=== PATIENT | male | born 1950 | race African-American/Black ===

== ENCOUNTER 2016-07-28 17:09 | Inpatient (IN) | payer OTHER ==
[~2016-07-28] VITALS: Ht 182.9 cm; Wt 143.3 kg
[~2016-07-28 17:09] MED LIST: ATOR40TA70 PO; CARV6.2548 PO; DOCU-150 PO; FURO40TA5 PO; GABA-529 PO; LEVO100T9 PO; OMEP20CA10 PO; POLY17PO3 PO; SIMETHICONE PO; TAMS0.4C31 PO; TRAM50TA3 PO
[2016-07-28 21:02] LABS: BASOPHILS % 0.8 % (0.0-2.0); EOSINOPHILS % 2.9 % (0.0-5.0); HEMATOCRIT. 38.9 % (42.0-52.0); HEMOGLOBIN. 12.9 g/dL (14.0-18.0); LYMPHOCYTES % 24.8 % (20.0-50.0); MEAN CORPUSCULAR HEMOGLOBIN 29.2 pg (28.0-32.0); MEAN CORPUSCULAR HGB CONC 33.1 g/dL (31.0-37.0); MEAN CORPUSCULAR VOLUME 88.3 fL (80.0-94.0); MEAN PLATELET VOLUME 8.4 fl (7.4-10.4); NEUTROPHILS % 65.5 % (40.0-76.0); PLATELET 241 x1000/uL (130-400); RED BLOOD CELL COUNT 4.41 mill/uL (4.7-6.1); RED CELL DISTRIBUTION WIDTH 18.1 % (11.6-14.6)
[2016-07-28 21:09] LABS: PROTHROMBIN TIME 10.3 sec
[2016-07-28 21:17] LABS: ALANINE AMINOTRANSFERASE 22 IU/L (13-61); ALBUMIN 3.2 g/dL (3.4-5.0); ANION GAP 10; CALCIUM 8.4 mg/dL (8.5-10.1); CARBON DIOXIDE 28 mEq/L (21-32); CHLORIDE 106 mEq/L (98-107); INDEX HEMOLYSI 1 (1-3); INDEX ICTERIC 1 (1-4); INDEX LIPEMIC 1 (1-3); NT PRO B-TYPE NATRIURETIC PEP 48 pg/mL (5-125); TROPONIN I < 0.02 ng/mL (0.00-0.04); UREA NITROGEN BLOOD 15 mg/dL (7-21); eGFR > 60 mL/min (>60)
[2016-07-28] MEDS ORDERED: MORPHINE SULFATE 4 MG/ML CPJ (NOT FOR IM USE) IV ONE (22:00)
[2016-07-28] MEDS ORDERED: ONDANSETRON HCL 4MG/2ML VIAL IV ONE (22:00)
[2016-07-29] MEDS ORDERED: FUROSEMIDE 40MG/4ML VIAL IVP ONE
[2016-07-29] MEDS ORDERED: MAGNESIUM/ALUMINUM HYDROXIDE/SIMETHICONE 30ML UDC PO PRN (01:15)
[2016-07-29] MEDS ORDERED: CLONIDINE 0.1MG TABLET PO PRN (01:15)
[2016-07-29] MEDS ORDERED: DIPHENHYDRAMINE 50MG/ML VIAL IV PRN (01:15)
[2016-07-29] MEDS ORDERED: NA PHOS,M-B/NA PHOS,DI-BA ENEMA 118ML PR PRN (01:15)
[2016-07-29] MEDS ORDERED: ONDANSETRON HCL 4MG/2ML VIAL IV PRN (01:15)
[2016-07-29] MEDS ORDERED: ACETAMINOPHEN 650MG SUPP PR PRN (01:15)
[2016-07-29] MEDS ORDERED: GUAIFENESIN 200MG/10ML SUGAR FREE UDC PO PRN (01:15)
[2016-07-29] MEDS ORDERED: ACETAMINOPHEN 650MG/20.3ML UDC GT PRN (01:15)
[2016-07-29] MEDS ORDERED: ACETAMINOPHEN 325MG TABLET PO PRN (01:15)
[2016-07-29] MEDS ORDERED: IPRATROPIUM/ALBUTEROL 0.5-3(2.5)MG/3ML NEB INH PRN (01:15)
[2016-07-29] MEDS ORDERED: ENOXAPARIN 120MG/0.8ML SYR SUBCUT STA (02:32)
[2016-07-29] MEDS: HYDROCODONE/ACETAMINOPHEN 5/325MG TABLET PO PRN ×2 (03:57→16:41)
[2016-07-29] MEDS ORDERED: FUROSEMIDE 40MG/4ML VIAL ONE (06:29)
[2016-07-29 08:00] VITALS: BP 132/78
[2016-07-29] MEDS ORDERED: SODIUM CHLORIDE 0.9% 10ML VIAL ONE (10:48)
[2016-07-29] MEDS ORDERED: IOHEXOL-350 100 ML BOTTLE ONE (10:48)
[2016-07-29 15:56] LABS: CLARITY URINE CLEAR (CLEAR); COLOR URINE YELLOW (YELLOW); GLUCOSE URINE NEGATIVE (NEGATIVE); KETONES URINE NEGATIVE (NEGATIVE); LEUKOCYTE ESTERASE URINE NEGATIVE (NEGATIVE); NITRITE URINE NEGATIVE (NEGATIVE); OCCULT BLOOD URINE NEGATIVE (NEGATIVE); PH URINE 5.5 (4.5-8.0); PROTEIN URINE NEGATIVE (NEGATIVE); UROBILINOGEN URINE 0.2 E.U./dL (0.2-1.0)
[2016-07-29 16:00] VITALS: BP 144/102
[2016-07-29 16:24] LABS: *AMPHETAMINES SCREEN URINE NEGATIVE (NEGATIVE); *BARBITURATES SCREEN URINE NEGATIVE (NEGATIVE); *BENZODIAZEPINES SCREEN URINE NEGATIVE (NEGATIVE); *COCAINE SCREEN URINE PRESUMTIVE POSITIVE (NEGATIVE); CANNABINOID URINE SCREEN NEGATIVE (NEGATIVE); ECSTASY MDMA SCREEN URINE NEGATIVE (NEGATIVE); METHADONE URINE SCREEN NEGATIVE (NEGATIVE); OPIATES URINE SCREEN PRESUMTIVE POSITIVE (NEGATIVE); PHENCYCLIDINE URINE SCREEN NEGATIVE (NEGATIVE)
[2016-07-29] MEDS: ENOXAPARIN 150MG/ML SYR SUBCUT SCH (16:36)
[2016-07-29 16:47] VITALS: BP 134/78
[2016-07-29] MEDS ORDERED: WARFARIN SODIUM 10MG TABLET PO SCH (18:00)
[2016-07-29] MEDS: FUROSEMIDE 40MG/4ML VIAL IVP SCH (18:17)
[2016-07-29 20:00] VITALS: BP 114/76
[2016-07-29] MEDS: SODIUM CHLORIDE 0.9% INJ 3ML FLUSH IVF SCH (21:12)
[2016-07-29] MEDS ORDERED: coumadin PO (21:23)
[2016-07-30] VITALS: BP 116/76
[2016-07-30] MEDS: HYDROCODONE/ACETAMINOPHEN 5/325MG TABLET PO PRN ×3 (01:10→17:28)
[2016-07-30] MEDS: DOCUSATE SODIUM 100MG CAPSULE PO PRN ×2 (01:16→17:28)
[2016-07-30] MEDS: ENOXAPARIN 150MG/ML SYR SUBCUT SCH (02:18)
[2016-07-30 04:00] VITALS: BP 121/81
[2016-07-30] MEDS: SODIUM CHLORIDE 0.9% INJ 3ML FLUSH IVF SCH ×3 (05:31→21:07)
[2016-07-30 06:24] LABS: PROTHROMBIN TIME 10.8 sec
[2016-07-30 07:01] LABS: BASOPHILS % 1.2 % (0.0-2.0); HEMATOCRIT. 35.3 % (42.0-52.0); HEMOGLOBIN. 11.8 g/dL (14.0-18.0); LYMPHOCYTES % 39.7 % (20.0-50.0); MEAN CORPUSCULAR HGB CONC 33.4 g/dL (31.0-37.0); MEAN CORPUSCULAR VOLUME 86.8 fL (80.0-94.0); MEAN PLATELET VOLUME 8.9 fl (7.4-10.4); MONOCYTES % 8.1 % (2.0-8.0); PLATELET 234 x1000/uL (130-400); RED BLOOD CELL COUNT 4.07 mill/uL (4.7-6.1); RED CELL DISTRIBUTION WIDTH 17.8 % (11.6-14.6); WHITE BLOOD COUNT 5.1 x1000/uL (4.5-11.0)
[2016-07-30 07:38] LABS: ALBUMIN 2.6 g/dL (3.4-5.0); ANION GAP 8; CALCIUM 8.1 mg/dL (8.5-10.1); CARBON DIOXIDE 31 mEq/L (21-32); CHLORIDE 105 mEq/L (98-107); INDEX HEMOLYSI 1 (1-3); INDEX ICTERIC 1 (1-4); INDEX LIPEMIC 1 (1-3); UREA NITROGEN BLOOD 12 mg/dL (7-21)
[2016-07-30 07:42] LABS: ALANINE AMINOTRANSFERASE 18 IU/L (13-61); eGFR > 60 mL/min (>60)
[2016-07-30 08:00] VITALS: BP 115/72
[2016-07-30] MEDS: FUROSEMIDE 40MG/4ML VIAL IVP SCH (09:25)
[2016-07-30 12:00] VITALS: BP 121/71
[2016-07-30 16:00] VITALS: BP 120/69
[2016-07-30] MEDS: RIVAROXABAN 20 MG TABLET PO SCH (17:25)
[2016-07-30 20:00] VITALS: BP 128/70
[2016-07-31] VITALS: BP 121/82
[2016-07-31 04:00] VITALS: BP 114/74
[2016-07-31] MEDS: SODIUM CHLORIDE 0.9% INJ 3ML FLUSH IVF SCH ×3 (06:33→22:00)
[2016-07-31 08:00] VITALS: BP 143/91
[2016-07-31] MEDS: FUROSEMIDE 40MG/4ML VIAL IVP SCH (10:11)
[2016-07-31] MEDS: HYDROCODONE/ACETAMINOPHEN 5/325MG TABLET PO PRN ×3 (10:12→16:39)
[2016-07-31] MEDS: DOCUSATE SODIUM 100MG CAPSULE PO PRN (10:23)
[2016-07-31 12:00] VITALS: BP 139/87
[2016-07-31] MEDS ORDERED: ALPRAZOLAM 0.5 MG TABLET PO PRN (14:00)
[2016-07-31 16:00] VITALS: BP 125/77
[2016-07-31] MEDS: FOLIC ACID 1MG TABLET PO SCH (16:36)
[2016-07-31] MEDS: RIVAROXABAN 20 MG TABLET PO SCH (16:37)
[2016-07-31] MEDS: MULTIVITAMINS,THER W-MINERALS TABLET PO SCH (16:37)
[2016-07-31] MEDS: GABAPENTIN 400MG CAPSULE PO SCH ×2 (16:38→22:00)
[2016-07-31 20:00] VITALS: BP 130/81
[2016-08-01] VITALS: BP 133/78
[2016-08-01 04:00] VITALS: BP 105/64
[2016-08-01] MEDS: GABAPENTIN 400MG CAPSULE PO SCH ×3 (05:22→21:30)
[2016-08-01] MEDS: SODIUM CHLORIDE 0.9% INJ 3ML FLUSH IVF SCH ×3 (05:22→21:31)
[2016-08-01 08:00] VITALS: BP 118/74
[2016-08-01] MEDS: MULTIVITAMINS,THER W-MINERALS TABLET PO SCH (09:49)
[2016-08-01] MEDS: FOLIC ACID 1MG TABLET PO SCH (09:49)
[2016-08-01] MEDS: FUROSEMIDE 40MG/4ML VIAL IVP SCH (09:49)
[2016-08-01 12:00] VITALS: BP 123/90
[2016-08-01 16:00] VITALS: BP 139/89
[2016-08-01] MEDS: RIVAROXABAN 20 MG TABLET PO SCH (17:18)
[2016-08-01 20:00] VITALS: BP 114/69
[2016-08-01 23:16] LABS: CHLORIDE 102 mEq/L (98-107); INDEX HEMOLYSI 1 (1-3); INDEX ICTERIC 1 (1-4); INDEX LIPEMIC 1 (1-3)
[2016-08-01 23:23] LABS: ALANINE AMINOTRANSFERASE 19 IU/L (13-61); ALBUMIN 2.6 g/dL (3.4-5.0); ANION GAP 11; CALCIUM 8.1 mg/dL (8.5-10.1); CARBON DIOXIDE 30 mEq/L (21-32); UREA NITROGEN BLOOD 12 mg/dL (7-21); eGFR > 60 mL/min (>60)
[2016-08-01 23:30] LABS: INR 1.2; PROTHROMBIN TIME 12.5 sec
[2016-08-01 23:53] LABS: BASOPHILS % 1.1 % (0.0-2.0); EOSINOPHILS % 3.2 % (0.0-5.0); HEMATOCRIT. 36.8 % (42.0-52.0); HEMOGLOBIN. 12.3 g/dL (14.0-18.0); LYMPHOCYTES % 33.5 % (20.0-50.0); MEAN CORPUSCULAR HEMOGLOBIN 29.2 pg (28.0-32.0); MEAN CORPUSCULAR HGB CONC 33.5 g/dL (31.0-37.0); MEAN CORPUSCULAR VOLUME 87.4 fL (80.0-94.0); MEAN PLATELET VOLUME 8.6 fl (7.4-10.4); MONOCYTES % 8.1 % (2.0-8.0); NEUTROPHILS % 54.1 % (40.0-76.0); PLATELET 239 x1000/uL (130-400); RED BLOOD CELL COUNT 4.22 mill/uL (4.7-6.1); RED CELL DISTRIBUTION WIDTH 17.8 % (11.6-14.6); WHITE BLOOD COUNT 6.3 x1000/uL (4.5-11.0)
[2016-08-02 00:08] VITALS: BP 121/71
[2016-08-02 03:50] VITALS: BP 101/67
[2016-08-02] MEDS: SODIUM CHLORIDE 0.9% INJ 3ML FLUSH IVF SCH ×3 (05:15→21:37)
[2016-08-02] MEDS: GABAPENTIN 400MG CAPSULE PO SCH ×3 (05:15→21:37)
[2016-08-02 08:00] VITALS: BP 100/56
[2016-08-02] MEDS: FOLIC ACID 1MG TABLET PO SCH (08:15)
[2016-08-02] MEDS: MULTIVITAMINS,THER W-MINERALS TABLET PO SCH (08:15)
[2016-08-02] MEDS: FUROSEMIDE 40MG/4ML VIAL IVP SCH (10:01)
[2016-08-02] MEDS: DOCUSATE SODIUM 100MG CAPSULE PO PRN (10:01)
[2016-08-02] MEDS: HYDROCODONE/ACETAMINOPHEN 5/325MG TABLET PO PRN (10:02)
[2016-08-02 12:00] VITALS: BP 133/75
[2016-08-02] MEDS ORDERED: xarelto PO (14:11)
[2016-08-02 16:00] VITALS: BP 116/68
[2016-08-02] MEDS: RIVAROXABAN 20 MG TABLET PO SCH (17:16)
[2016-08-03] VITALS: BP 124/76
[2016-08-03] MEDS: DOCUSATE SODIUM 100MG CAPSULE PO PRN (01:56)
[2016-08-03 04:00] VITALS: BP 141/74
[2016-08-03] MEDS: SODIUM CHLORIDE 0.9% INJ 3ML FLUSH IVF SCH ×3 (06:46→21:41)
[2016-08-03 08:00] VITALS: BP 156/85
[2016-08-03] MEDS: FOLIC ACID 1MG TABLET PO SCH (08:52)
[2016-08-03] MEDS: GABAPENTIN 400MG CAPSULE PO SCH ×3 (08:52→21:41)
[2016-08-03] MEDS: MULTIVITAMINS,THER W-MINERALS TABLET PO SCH (08:52)
[2016-08-03] MEDS: FUROSEMIDE 40MG/4ML VIAL IVP SCH (08:53)
[2016-08-03 12:00] VITALS: BP 135/83
[2016-08-03 16:00] VITALS: BP 111/78
[2016-08-03] MEDS: RIVAROXABAN 20 MG TABLET PO SCH (17:35)
[2016-08-03 20:00] VITALS: BP 115/80
[2016-08-03] MEDS ORDERED: HYDROCODONE/ACETAMINOPHEN 5/325MG TABLET PO PRN (22:15)
[2016-08-03] MEDS: HYDROCODONE/ACETAMINOPHEN 5/325MG TABLET PO PRN (22:16)
[2016-08-04] VITALS: BP 116/67
[2016-08-04 04:00] VITALS: BP 121/74
[2016-08-04] MEDS: SODIUM CHLORIDE 0.9% INJ 3ML FLUSH IVF SCH ×2 (05:29→15:09)
[2016-08-04] MEDS: GABAPENTIN 400MG CAPSULE PO SCH ×2 (05:29→15:09)
[2016-08-04 08:00] VITALS: BP 114/65
[2016-08-04] MEDS: MULTIVITAMINS,THER W-MINERALS TABLET PO SCH (08:10)
[2016-08-04] MEDS: FOLIC ACID 1MG TABLET PO SCH (08:10)
[2016-08-04] MEDS: FUROSEMIDE 40MG/4ML VIAL IVP SCH (10:00)
[2016-08-04] MEDS: HYDROCODONE/ACETAMINOPHEN 5/325MG TABLET PO PRN ×2 (10:01→17:47)
[2016-08-04 12:00] VITALS: BP 111/87
[2016-08-04 16:00] VITALS: BP 103/64
[2016-08-04] MEDS: RIVAROXABAN 20 MG TABLET PO SCH (17:46)
[2016-08-04 18:23] VITALS: BP 103/64
== END 2016-08-04 21:27 | disposition home health service (06) | DRG 197 ==
LOC: ER 17:10 → 5WST 07-29 00:52 → 6EST 08-03 15:05
PROVIDERS: ADMIT Family Medicine; ATTEND Family Medicine
DX: I82.412 Acute embolism and thrombosis of left femoral vein (principal); I26.99 Other pulmonary embolism without acute cor pulmonale; G92 Toxic encephalopathy; E46 Unspecified protein-calorie malnutrition; I11.0 Hypertensive heart disease with heart failure; I50.32 Chronic diastolic (congestive) heart failure; E66.01 Morbid (severe) obesity due to excess calories; F14.90 Cocaine use, unspecified, uncomplicated; E03.9 Hypothyroidism, unspecified; I82.432 Acute embolism and thrombosis of left popliteal vein; E11.9 Type 2 diabetes mellitus without complications; E78.5 Hyperlipidemia, unspecified; Z59.0 Homelessness; Z91.14 Patient's other noncompliance with medication regimen; Z79.01 Long term (current) use of anticoagulants; Z68.41 Body mass index [BMI] 40.0-44.9, adult; Z79.899 Other long term (current) drug therapy
CPT/HCPCS: 36415; 71010; 71275; 74000; 80053; 80305; 81003; 83880; 84484; 85025; 85610; 93005; 93306; 93970; 96372; 96374; 96375; 97116; 97162; 97166; 97530; 99285; 99406; A4216; J1650; J1940; J2270; J2405; J7050; Q9967